=== PATIENT | female | born 1995 | race Caucasian/White ===

== ENCOUNTER 2016-07-27 13:39 | Emergency (ER) | payer OTHER ==
--- NOTE | 2016-07-27 13:50 | EDPHY ---
H & P Time Seen by Provider: 07/27/16 13:40 HPI/ROS: CHIEF COMPLAINT: "Allergic reaction" HISTORY OF PRESENT ILLNESS: 21-year-old immunocompetent female arrives via ambulance complaining of diffuse, highly pruritic rash started yesterday evening and has progressed. She went to [email or web address] was given EpiPen and 911 was called. She denies is dysphagia or odynophagia. Denies genitalia involved. Denies ocular irritation or injection. Denies nausea vomiting or diarrhea. She was treated treated empirically for strep pharyngitis incomplete therapy 7 days ago with penicillin. She then had a positive mono test. PRIMARY CARE PROVIDER:R[facility] REVIEW OF SYSTEMS: A ten point review of systems was performed and is negative with the exception of the items mentioned in the HPI PAST MEDICAL & SURGICAL HISTORY: No pertinent medical or surgical history SOCIAL HISTORY: student PHYSICAL EXAM (Prior to examination, patient consented to physical exam, hands were washed and my usual and customary physical exam procedures followed) 1) GENERAL: Well-developed, well-nourished, alert and oriented. Appears to be in no acute distress. 2) HEAD: Normocephalic, atraumatic 3) HEENT: Pupils equal, round, reactive to light bilaterally. Sclera anicteric. No exudate Nasopharynx, oropharynx, clear, no lesions. No lesions. No tonsillar enlargement or exudate. No trismus no drooling. Ears bilaterally with normal tympanic membranes. 4) NECK: Full range of motion, no meningeal signs. 5) LUNGS: Clear auscultation bilaterally, no wheezes, no rhonchi, no retractions. 6) HEART: Regular rate and rhythm, no murmur, no heave, no gallop. 7) ABDOMEN: No guarding, no rebound, no focal tenderness, negative McBurney's, negative Segal's, negative Rovsing's, negative peritoneal sign, 8) MUSCULOSKELETAL: Moving all extremities, no focal areas of tenderness, no obvious trauma. No peripheral edema or discoloration. 9) BACK: No CVA tenderness 10) SKIN: On the patient's chest and back, following a sun-exposed distribution she has an urticarial appearing rash. She also has similar appearance on her bilateral anterior knees as well as her shoulders, all in sun- exposed areas. No sloughing. No vesicles. No blisters. No tenderness. DIFFERENTIAL DIAGNOSIS: in no particular order including but not limited to anaphylaxis, photo dermatitis, urticaria, James-Ezequiel (Juve Linares) Constitutional: Initial Vital Signs Temperature (C) 37.2 C 07/27/16 13:54 Heart Rate 113 H 07/27/16 13:54 Respiratory Rate 17 07/27/16 13:54 Blood Pressure 123/92 H 07/27/16 13:54 O2 Sat (%) 98 07/27/16 13:54 O2 Delivery Mode Room Air Allergies/Adverse Reactions: No Known Allergies Allergy (Unverified 07/27/16 13:54) Home Medications: Medication Instructions Recorded Famotidine [Pepcid 20 MG (*)] 20 mg PO BID #15 tab 07/27/16 Loestrin 24 Fe Tablet 07/27/16 Prednisone 07/27/16 diphenhydrAMINE HCL [Benadryl] 25 mg PO QID #15 capsule 07/27/16 Medical Decision Making ED Course/Re-evaluation: The patient was re-evaluated with serial exams. Also seen exam by Dr. Wendy Cross. Doubt James-Ezequiel. Doubt toxic epidermal necrolysis. Discussed possibility of acute photo dermatitis and urticaria. We also discussed development of rash in presence of positive mononucleosis and penicillin use, has been off penicillin for 7 days. At this time we do not think that further evaluation, admission or emergent dermatologic consultation is indicated. I have recommended following with care aide. Usual and customary dermatologic precautions instructions provided. Recommend continue H1 H2 blockers and continue her prednisone. She feels comfortable with this plan. ( Juve Linares) Other Provider: The patient was evaluated and managed by the physician assistant superintendent for curriculum. I have reviewed this chart and I agree with the findings and plan of care as documented , as indicated by my signature. I am the secondary supervising physician. ( Wendy Cross) Departure - Departure Disposition: Home, Routine, Self-Care Clinical Impression: Urticaria Condition: Good Instructions: Urticaria (ED) Additional Instructions: Return to the ER if you develop new or worsening symptoms, if you develop lesions or soreness inside your mouth, on your genitalia, irritation to your eyes, nausea, vomiting, diarrhea or any other symptoms that concern you. Referrals: Jose Maria Bond MD [Medical Doctor] - 2-3 days, call for appt. (Dr. Pako Bond is a care aide) Prescriptions: diphenhydrAMINE HCL [Benadryl] 25 mg PO QID #15 capsule Famotidine [Pepcid 20 MG (*)] 20 mg PO BID #15 tab
[2016-07-27 13:57] VITALS: RESP 17; O2SAT 98
[2016-07-27 15:44] VITALS: BP 118/75; PULSE 78; TEMP 98.8
== END 2016-07-27 15:43 | disposition home or self-care (01) ==
LOC: EDUNIT#
DX: L50.9 Urticaria, unspecified (principal)

== ENCOUNTER 2016-08-03 21:28 | Emergency (ER) | payer OTHER ==
--- NOTE | 2016-08-03 21:57 | CPEKG ---
Heart Rate: 83 RR Interval: 723 P-R Interval: 156 QRSD Interval: 70 QT Interval: 344 QTC Interval: 405 P Weare: 48 QRS Weare: 59 T Wave Weare: 44 EKG Severity - NORMAL ECG - EKG Impression: SINUS RHYTHM Electronically Signed By: Sanjay Maradiaga 04-Aug-2016 06:52:57
--- NOTE | 2016-08-03 22:20 | EDPHY ---
H & P Stated Complaint: chest tightn, tachycardia (resolved), palpitations, dizziness , near syncope Time Seen by Provider: 08/03/16 22:02 HPI/ROS: Chief Complaint: Heart racing HPI: 21-year-old female had a sudden onset of her heart racing about an hour and half ago. States he continued foot till it stops just before she arrived in the emergency department. She is currently being treated for an allergic reaction. She has seen emergency department 1 week ago and was started on Benadryl and the prednisone taper. She is currently taking 40 mg day. She also drink caffeine tonight which is unusual for her. No shortness of breath. No fainting. Does not have a family history of heart disease or sudden cardiac . Currently is feeling normal without complaint. She does drink occasional alcohol, she had 1 drink last night. None in the last 24 hours. ROS: 10 point Review of Systems is negative except as noted in the HPI. PMH: None Medications: Benadryl, Pepcid, prednisone, oral contraceptives Social History: No smoking, occasional alcohol, no recreational drug use Family History: non-contributory Physical Exam: Gen: Awake, Alert, No Distress HEENT: Nose: no rhinorrhea Eyes: PERRLA, EOMI Mouth: Moist mucosa Neck: Supple, no JVD Chest: nontender, lungs clear to auscultation Heart: S1, S2 normal, no murmur Abd: Soft, non-tender, no guarding Back: no CVA tenderness, no midline tenderness Ext: no edema, non-tender Skin: no rash Neuro: CN II-XII intact, Sensation grossly intact, Strength 5/5 in bilateral upper and lower extremities - Personal History LMP (Females 10-55): 15-21 Days Ago Current Tetanus/Diphtheria Vaccine: Yes Current Tetanus Diphtheria and Acellular Pertussis (TDAP): Yes - Medical/Surgical History Hx Asthma: No Hx Chronic Respiratory Disease: No Hx Diabetes: No Hx Cardiac Disease: No Hx Renal Disease: No Hx Cirrhosis: No Hx Alcoholism: No Hx HIV/AIDS: No Hx Splenectomy or Spleen Trauma: No Other PMH: denies - Social History Smoking Status: Never smoked Constitutional: Initial Vital Signs Temperature (C) 36.6 C 08/03/16 21:30 Heart Rate 107 H 08/03/16 21:30 Respiratory Rate 20 08/03/16 21:30 Blood Pressure 136/91 H 08/03/16 21:30 O2 Sat (%) 98 08/03/16 21:30 O2 Delivery Mode Room Air Allergies/Adverse Reactions: No Known Allergies Allergy (Verified 08/03/16 21:35) Home Medications: Medication Instructions Recorded Famotidine [Pepcid 20 MG (*)] 20 mg PO BID #15 tab 07/27/16 Loestrin 24 Fe Tablet 07/27/16 Prednisone 07/27/16 diphenhydrAMINE HCL [Benadryl] 25 mg PO QID #15 capsule 07/27/16 Medical Decision Making - Diagnostics EKG Interpretation: ECG time 9:55 p.m. sinus rhythm with a rate of 83, normal axis, normal intervals , no acute ST or T-wave changes. Impression: Normal ECG ED Course/Re-evaluation: 21-year-old with an episode of palpitations which has since resolved. She is in sinus rhythm here. She is currently taking prednisone and drink caffeine tonight. I suspect that she had an episode of SVT which has since resolved. She has not have any risk factors for sudden cardiac . She is otherwise well-appearing with normal vital signs now. She has been reassured. She will follow up with Work for further evaluation. I have given her instructions for fell sulfa maneuvers should this occur again. If it occurs again and persists she will present to the emergency department for further evaluation. Departure - Departure Disposition: Home, Routine, Self-Care Clinical Impression: Palpitations Condition: Good Instructions: Palpitations (ED) Additional Instructions: Return to the emergency department for increasing palpitations, chest pain, shortness of breath, or any other concerns. Follow up with [facility] for any concerns. Referrals: HARRY GRIFFIN [Other] - As per Instructions
[2016-08-03 22:37] VITALS: BP 136/85; PULSE 81; RESP 15; TEMP 98.8; O2SAT 97
== END 2016-08-03 22:38 | disposition home or self-care (01) ==
DX: R00.2 Palpitations (principal)